=== PATIENT | male | born 1975 | race African-American/Black ===

== ENCOUNTER 2019-04-14 11:26 | Emergency (ER) | payer SELFPAY ==
[~2019-04-14] VITALS: Ht 180.3 cm; Wt 119.7 kg
[~2019-04-14 11:26] MED LIST: CEPH-264 PO
[2019-04-14 11:34] VITALS: BP 165/92
[2019-04-14 11:50] LABS: BILIRUBIN,URINE NEGATIVE (NEG); CLARITY,URINE CLEAR; COLOR,URINE YELLOW; NITRITE,URINE NEGATIVE (NEG); PH,URINE 6.5; PROTEIN,URINE NEGATIVE (NEG-TRACE)
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
[2019-04-14 12:03] LABS: RBC,URINE OCC /HPF (0-2)
[2019-04-14 12:04] LABS: BACTERIA,URINE 0 /HPF (0-FEW); SQUAMOUS EPITHELIAL CELL,UR FEW /LPF
[2019-04-14] MEDS ORDERED: metroNIDAZOLE 500 MG TABLET PO ONE (12:15)
[2019-04-14] MEDS ORDERED: AZITHROMYCIN 250 MG TABLET. PO ONE (12:15)
[2019-04-14] MEDS ORDERED: cefTRIAXone IM 250 MG VIAL IM ONE (12:15)
== END 2019-04-14 12:17 | disposition home or self-care (01) ==
LOC: ER 11:26
DX: Z20.2 Contact with and (suspected) exposure to infections with a predominantly sexual mode of transmission (principal)
CPT/HCPCS: 81001; 87491; 87591; 96372; 99284; J0696; Q0144